=== PATIENT | female | born 1995 | race African-American/Black ===

== ENCOUNTER 2019-03-11 12:39 | Inpatient (IN) ==
[2019-03-11] MEDS ORDERED: BUTORPHANOL 2 MG/ML VIAL IV PRN (12:52)
[2019-03-11] MEDS ORDERED: ONDANSETRON 4 MG/2 ML VIAL IV PRN (12:52)
[2019-03-11] MEDS ORDERED: MEPERIDINE 50 MG/1 ML VIAL IV PRN (12:52)
[2019-03-11] MEDS ORDERED: LACTATED RINGERS 1,000 ML IV SCH (13:00)
[2019-03-11 13:24] LABS: Basophils % 0.1 % (0.0-0.8); Eosinophils % 0.2 % (0.00-10.9); Hematocrit 26.8 VOL% (35.7-47.0); Hemoglobin 8.5 GM/DL (12.0-16.0); Immature Granulocytes % 0.7 %; Immature Granulocytes Absolute 0.07 #; Lymphocytes % 9.2 % (21.3-54.2); Mean Corpuscular HGB Conc 31.7 GM/DL (32-36); Mean Corpuscular Volume 97.5 FL (87-102); Monocytes % 3.9 % (1.7-12.7); Neutrophils % 85.9 % (38.7-73.9); Platelet Count 269 T/CUMM (130-400); Red Blood Count 2.75 MC/CUMM (3.8-5.5); Red Cell Distribution Width 14.2 % (9.3-17.3); White Blood Count 10.6 T/CUMM (4-12)
[2019-03-11] MEDS ORDERED: CITRIC ACID/SODIUM CITRATE 30 ML UDCUP PO ONE (13:28)
[2019-03-11] MEDS ORDERED: LACTATED RINGERS 1,000 ML IV ONE (13:28)
[2019-03-11] MEDS ORDERED: ePHEDrine 50 MG/ML AMP IV PRN (13:28)
[2019-03-11] MEDS ORDERED: FAMOTIDINE 20 MG/2 ML VIAL IV ONE (13:28)
[2019-03-11] MEDS: OXYTOCIN/LR 20 UNIT/1,000 ML BAG IV SCH ×2 (13:36→21:03)
[2019-03-11] MEDS ORDERED: fentaNYL 2 MCG/ROPIV 0.2% EPID 100 ML EPIDURAL ONE (13:53)
[2019-03-11] MEDS ORDERED: PROMETHAZINE 25 MG/1 ML VIAL IM ONE (14:32)
[2019-03-11] MEDS ORDERED: hydrOXYzine HCL 25 MG/1 ML VIAL IM PRN (14:32)
[2019-03-11] MEDS ORDERED: diphenhydrAMINE 50 MG/1 ML VIAL IV PRN ×2 (14:32)
[2019-03-11] MEDS ORDERED: LACTATED RINGERS 250 ML IV PRN (14:32)
[2019-03-11] MEDS ORDERED: NALOXONE 0.4 MG/ML VIAL IV PRN (14:32)
[2019-03-11] MEDS ORDERED: fentaNYL 2 MCG/ROPIV 0.2% EPID 100 ML EPIDURAL SCH (15:00)
[2019-03-11 15:29] LABS: Rapid Plasma Reagin Confirm NONREACTIVE (Nonreactive)
[2019-03-11 15:39] LABS: Apearance,Urine CLEAR (Clear); Bilirubin,Urine Negative (Negative); Blood, Urine Negative (Negative); Glucose,Urine (UA) Negative (Negative); Ketones,Urine Negative (Negative); Mucus,Urine Occasional /LPF (Occasional); Nitrite,Urine Negative (Negative); Protein,Urine 30 MG/DL; RBC,Urine 3 /HPF (0-4); Squamous Epithelial Cell,Urine Occasional /HPF (0-10); Urine Color Yellow (Yellow); Urine Specific Gravity 1.023 (1.001-1.035); WBC,Urine 1 /HPF (0-6)
[2019-03-11] MEDS ORDERED: miSOPROStol 200 MCG TABLET ONE (16:59)
[2019-03-11] MEDS ORDERED: METHYLERGONOVINE 0.2 MG/1 ML AMP ONE (17:00)
[2019-03-11] MEDS ORDERED: LIDOCAINE 1% 50 ML VIAL ONE (17:02)
[2019-03-11 18:18] LABS: Cord Venous Blood HCO3 17.5 MMOL/L
[2019-03-11] MEDS ORDERED: oxyCODONE/ACETAMINOPHEN 5-325 MG TABLET PO PRN ×2 (21:42)
[2019-03-11] MEDS ORDERED: LANOLIN 50% CREAM 0.3 OZ TUBE TOP PRN (21:42)
[2019-03-11] MEDS ORDERED: RHO(D) IMMUNE GLOBULIN 300 MCG SYRINGE IM ONE (21:42)
[2019-03-11] MEDS ORDERED: MEASLES/MUMPS/RUBELLA VACCINE 0.5 ML VIAL SUBCUT ONE (21:42)
[2019-03-11] MEDS ORDERED: BISACODYL 10 MG SUPP RECTAL PRN (21:42)
[2019-03-11] MEDS ORDERED: DIPH/TET/ACEL PERT BOOSTER VACCINE 0.5 ML VIAL IM ONE (21:42)
[2019-03-11] MEDS ORDERED: WITCH HAZEL PADS 100/JAR TOP PRN (21:42)
[2019-03-11] MEDS ORDERED: ACETAMINOPHEN 325 MG TABLET PO PRN (21:42)
[2019-03-11] MEDS ORDERED: BENZOCAINE 20%/MENTHOL 0.5% SPRAY 56 GM CAN TOP PRN (21:42)
[2019-03-11] MEDS ORDERED: HYDROCORTISONE 2.5% RECTAL CREAM 30 GM TUBE TOP PRN (21:42)
[2019-03-11] MEDS: IBUPROFEN 800 MG TABLET PO PRN (21:54)
[2019-03-11] MEDS: DOCUSATE SODIUM 100 MG CAPSULE PO SCH (21:55)
[2019-03-12] MEDS: IBUPROFEN 800 MG TABLET PO PRN ×2 (04:38→16:31)
[2019-03-12 06:19] LABS: Basophils % 0.2 % (0.0-0.8); Eosinophils % 0.2 % (0.00-10.9); Hematocrit 21.7 VOL% (35.7-47.0); Hemoglobin 6.8 GM/DL (12.0-16.0); Immature Granulocytes % 0.5 %; Immature Granulocytes Absolute 0.07 #; Lymphocytes # 2.3 10*3/uL (1.4-4.0); Lymphocytes % 17.3 % (21.3-54.2); Mean Corpuscular HGB Conc 31.3 GM/DL (32-36); Mean Corpuscular Volume 99.1 FL (87-102); Mean Platelet Volume 9.3 FL (9.6-12.0); Neutrophils % 74.8 % (38.7-73.9); Platelet Count 245 T/CUMM (130-400); Red Blood Count 2.19 MC/CUMM (3.8-5.5); Red Cell Distribution Width 14.3 % (9.3-17.3)
[2019-03-12] MEDS: DOCUSATE SODIUM 100 MG CAPSULE PO SCH ×2 (08:32→20:57)
[2019-03-12] MEDS: FERROUS SULFATE 325 MG TABLET PO SCH ×3 (08:33→20:57)
[2019-03-12] MEDS ORDERED: FERROUS SULFATE 325 MG TABLET PO SCH (09:00)
[2019-03-12] MEDS ORDERED: SODIUM CHLORIDE 0.9% 1,000 ML IV PRN (10:04)
[2019-03-12 19:16] LABS: Hematocrit 28.1 VOL% (35.7-47.0)
[2019-03-13 06:32] LABS: Hematocrit 27.4 VOL% (35.7-47.0); Hemoglobin 8.9 GM/DL (12.0-16.0)
[2019-03-13 07:23] VITALS: BP 112/81
[2019-03-13] MEDS: FERROUS SULFATE 325 MG TABLET PO SCH (08:46)
[2019-03-13] MEDS: DOCUSATE SODIUM 100 MG CAPSULE PO SCH (08:46)
== END 2019-03-13 12:30 | disposition home or self-care (01) | DRG 807 ==
LOC: N.LDOUT 12:39 → N.LD 12:40 → N.OB 21:05
PROVIDERS: ADMIT Obstetrics & Gynecology; ATTEND Obstetrics & Gynecology